=== PATIENT | female | born 1960 | race Asian ===

== ENCOUNTER 2018-08-21 15:50 | Outpatient (RCR) | payer BC | END 2018-09-03 | disposition home or self-care (01) | LOC: WCC 15:50 | DX: N64.1 Fat necrosis of breast (principal); C50.912 Malignant neoplasm of unspecified site of left female breast; Z90.12 Acquired absence of left breast and nipple; Z88.6 Allergy status to analgesic agent | CPT/HCPCS: G0277; G0463 ==

== ENCOUNTER 2018-09-04 08:38 | Outpatient (RCR) | payer BC | END 2018-10-03 | disposition home or self-care (01) | LOC: WCC 08:38 | DX: N64.1 Fat necrosis of breast (principal); C50.912 Malignant neoplasm of unspecified site of left female breast; Z88.8 Allergy status to other drugs, medicaments and biological substances; Z90.12 Acquired absence of left breast and nipple | CPT/HCPCS: G0277; G0463 ==

== ENCOUNTER 2018-10-09 15:00 | Outpatient (RCR) | payer BC | END 2018-11-03 | disposition home or self-care (01) | LOC: WCC 15:00 | DX: N64.1 Fat necrosis of breast (principal); C50.912 Malignant neoplasm of unspecified site of left female breast; Z88.8 Allergy status to other drugs, medicaments and biological substances; Z90.12 Acquired absence of left breast and nipple | CPT/HCPCS: G0277 ×5 ==